=== PATIENT | female | born 1980 ===

== ENCOUNTER → 2021-06-02 | Outpatient (CLI) | payer OTHER | END | disposition home or self-care (01) | LOC: RX STUDY 09:46 | PROVIDERS: ATTEND Obstetrics & Gynecology Obstetrics | DX: N97.8 Female infertility of other origin (principal) ==

== ENCOUNTER 2022-07-13 09:33 | Outpatient (CLI) | payer OTHER | END 2022-07-13 10:00 | disposition home or self-care (01) | LOC: RAD 09:33 | PROVIDERS: ATTEND Obstetrics & Gynecology Obstetrics | DX: D25.0 Submucous leiomyoma of uterus (principal); E28.2 Polycystic ovarian syndrome ==